=== PATIENT | female | born 1995 | race Caucasian/White ===

== ENCOUNTER 2019-04-02 12:52 | Emergency (ER) | payer BC ==
[2019-04-02 13:47] VITALS: BP 137/88
--- NOTE | 2019-04-02 14:02 | UC ---
Throat Pain/Nasal Cesar HPI - HPI Summary HPI Summary: 24 year old female with PMH + for MH concerns presents with throat pain x 1-2 days. no difficulty with swallowing, no fever, chills. + mild nausea. no prior symptoms, no recent ABX use. nasal passages feel "dry", no sinus congestion. - History of Current Complaint Chief Complaint: UCRespiratory Stated Complaint: ST Time Seen by Provider: 04/02/19 13:34 Hx Obtained From: Patient Hx Last Menstrual Period: 02/08/19 ?: No Onset/Duration: Sudden Onset, Lasting Days Severity: Mild Pain Intensity: 2 Pain Scale Used: 0-10 Numeric Cough: None - Allergies/Home Medications Allergies/Adverse Reactions: Allergies Allergy/AdvReac Type Severity Reaction Status Date / Time bee sting Allergy Anaphylatic Uncoded 04/02/19 13:48 Shock Home Medications: Home Medications Epi Pen 1 IM PRN 04/02/19 [History] [place] Carbonate [[place] Carbonate 600 mg cap] 900 mg PO DAILY 04/02/19 [ History Confirmed 04/02/19] Quetiapine Fumarate [Seroquel 50 mg tab] 40 mg PO QPM 04/02/19 [History Confirmed 04/02/19] lamoTRIgine TAB(*) [LaMICtal TAB(*)] 400 mg PO BEDTIME 04/02/19 [History Confirmed 04/02/19] PMH/Surg Hx/FS Hx/Imm Hx Previously Healthy: Yes - Surgical History Surgical History: Yes Surgery Procedure, Year, and Place: cholecystectectomy; endoscopy - Family History Known Family History: Positive: Non-Contributory - Social History Occupation: Unemployed Alcohol Use: None Substance Use Type: None Smoking Status (MU): Never Smoked Tobacco Review of Systems All Other Systems Reviewed And Are Negative: Yes ENT: Positive: Sore Throat. Negative: Sinus Congestion, Sinus Pain/Tenderness Respiratory: Negative: Cough Motor: Positive: Negative Neurological: Positive: Negative Is Patient Immunocompromised?: No Physical Exam Triage Information Reviewed: Yes Appearance: Well-Appearing, No Pain Distress, Well-Nourished Vital Signs: Initial Vital Signs Temp 98.8 F 04/02/19 13:35 Pulse 113 04/02/19 13:35 Resp 18 04/02/19 13:35 BP 137/88 04/02/19 13:35 Pulse Ox 100 04/02/19 13:35 Vital Signs Reviewed: Yes Eyes: Positive: Conjunctiva Clear ENT: Positive: Pharyngeal erythema - minimal, TMs normal, Uvula midline. Negative: TM bulging, TM dull, TM red, Tonsillar swelling, Tonsillar exudate, Sinus tenderness Neck: Positive: Supple, Nontender, No Lymphadenopathy. Negative: Nuchal Rigidity, Enlarged Nodes @ Respiratory: Positive: Chest non-tender, Lungs clear, Normal breath sounds, No respiratory distress, No accessory muscle use. Negative: Respiratory distress, Crackles, Rhonchi, Stridor, Wheezing Cardiovascular: Positive: RRR, No Murmur Neurological Exam: Normal Psychological Exam: Normal Skin Exam: Normal Throat Pain/Nasal Course/Dx - Course Course Of Treatment: Pharyngitis: - Increase fluid intake - Over the counter medications as needed for symptoms, such as tylenol/ motrin for fever - Humidifier at night to help with symptoms - REturn with difficulty swallowing, increased symptosm, fever > 102 after medications, shortness of breath - Differential Dx/Diagnosis Differential Diagnosis/HQI/PQRI: Pharyngitis, URI Provider Diagnosis: Pharyngitis Discharge ED - Sign-Out/Discharge Documenting (check all that apply): Patient Departure All imaging exams completed and their final reports reviewed: No Studies - Discharge Plan Condition: Good Disposition: HOME Patient Education Materials: Pharyngitis (ED) Referrals: No Primary Care Phys,NOPCP [Primary Care Provider] - [facility] [Outside] Additional Instructions: - Increase fluid intake - Over the counter medications as needed for symptoms, such as tylenol/ motrin for fever - Humidifier at night to help with symptoms - REturn with difficulty swallowing, increased symptosm, fever > 102 after medications, shortness of breath - Rapid strep negative - Billing Disposition and Condition Condition: GOOD Disposition: Home
== END 2019-04-02 14:15 | disposition home or self-care (01) ==
LOC: UCCORT 12:52
DX: J02.9 Acute pharyngitis, unspecified (principal); Z91.030 Bee allergy status
CPT/HCPCS: 87651; 99201; G0463

== ENCOUNTER 2019-04-06 11:08 | Emergency (ER) | payer BC, MEDICAID ==
[2019-04-06 11:43] VITALS: BP 128/95
--- NOTE | 2019-04-06 12:00 | UC ---
Ear Complaint HPI - History of Current Complaint Chief Complaint: UCEar Stated Complaint: EAR COMPLAINT Time Seen by Provider: 04/06/19 11:57 Hx Last Menstrual Period: 02/10/19 Pain Intensity: 6 - Allergies/Home Medications Allergies/Adverse Reactions: Allergies Allergy/AdvReac Type Severity Reaction Status Date / Time bee sting Allergy Anaphylatic Uncoded 04/06/19 11:38 Shock PMH/Surg Hx/FS Hx/Imm Hx - Surgical History Surgical History: Yes Surgery Procedure, Year, and Place: cholecystectectomy; endoscopy - Family History Known Family History: Positive: Non-Contributory - Social History Alcohol Use: Occasionally Substance Use Type: None Smoking Status (MU): Never Smoked Tobacco Physical Exam Vital Signs: Initial Vital Signs Temp 98.5 F 04/06/19 11:39 Pulse 103 04/06/19 11:39 Resp 18 04/06/19 11:39 BP 128/95 04/06/19 11:39 Pulse Ox 98 04/06/19 11:39 Ear Complaint Course/Dx - Course Course Of Treatment: hx obtained,exam performed, meds reviewed, treated for left otitis media and right and left otitis externa - Differential Dx/Diagnosis Differential Diagnosis/HQI/PQRI: Otitis Externa, Otitis Media Provider Diagnosis: Left otitis media, Diffuse otitis externa, bilateral Discharge ED - Sign-Out/Discharge Documenting (check all that apply): Patient Departure All imaging exams completed and their final reports reviewed: No Studies - Discharge Plan Condition: Stable Disposition: HOME Prescriptions: Amoxicillin PO (*) [Amoxicillin 875 MG (*)] 875 mg PO BID #20 tab Ciproflox/Dexameth OTIC.SUSP* [Ciprodex OTIC.SUSP*] 4 drop .SEE ORDER BID #1 btl Patient Education Materials: Otitis Externa (ED) Referrals: No Primary Care Phys,NOPCP [Primary Care Provider] - Additional Instructions: 1. apply the drops to bother ears twice a day 2. Take the medication as prescribed. 3. Ibuprofen for pain and follow up if needed. - Billing Disposition and Condition Condition: STABLE Disposition: Home
== END 2019-04-06 12:15 | disposition home or self-care (01) ==
LOC: UCCORT 11:08
DX: H66.92 Otitis media, unspecified, left ear (principal); H60.313 Diffuse otitis externa, bilateral; Z91.030 Bee allergy status
CPT/HCPCS: 99212; G0463